=== PATIENT | male | born 1990 | race Caucasian/White ===

== ENCOUNTER 2021-02-14 10:15 | Inpatient (IN) | payer OTHER ==
[2021-02-14 11:15] VITALS: BMI 28.1
[2021-02-14] MEDS ORDERED: guaiFENesin 200 MG/10 ML 10 ML UNIT-DOSE CUPS PO PRN (13:53)
[2021-02-14] MEDS ORDERED: P-EPHED 60MG/TRIPROLIDI 2.5MG TABLET PO PRN (13:53)
[2021-02-14] MEDS ORDERED: MAGNESIUM CITRATE 300 ML BOTTLE PO PRN (13:53)
[2021-02-14] MEDS ORDERED: MAG HYDROX/AL HYDROX/SIMETH 30 ML UNIT-DOSE CUP PO PRN (13:53)
[2021-02-14] MEDS ORDERED: ACETAMINOPHEN 325 MG TABLET (FP) PO PRN (13:53)
[2021-02-14] MEDS ORDERED: NICOTINE POLACRILEX 2 MG GUM BC PRN (13:53)
[2021-02-14] MEDS ORDERED: IBUPROFEN 400 MG TABLET (FP) PO PRN (13:53)
[2021-02-14] MEDS ORDERED: MAGNESIUM HYDROX 2400MG/30ML ORAL SUSPENSION 30 ML CUP PO PRN (13:53)
[2021-02-14] MEDS ORDERED: LOPERAMIDE HCL 2 MG CAPSULE PO PRN (13:53)
[2021-02-14] MEDS ORDERED: diphenhydrAMINE HCL 25 MG CAPSULE (FP) PO PRN (13:57)
[2021-02-14] MEDS ORDERED: ALBUTEROL SO4 HFA INHALER IH PRN (13:57)
[2021-02-14] MEDS ORDERED: PANTOPRAZOLE 40 MG TABLET PO PRN (14:09)
[2021-02-14] MEDS: PRENATAL VITAMINS W/ FOLIC ACID TABLET (FP) PO SCH (15:21)
[2021-02-14] MEDS: hydrOXYzine PAMOATE 25 MG CAPSULE (FP) PO SCH ×3 (15:21→22:17)
[2021-02-14] MEDS: NICOTINE 21 MG/24 HOURS TOPICAL PATCH TD SCH (15:21)
[2021-02-14] MEDS: LORATADINE 10 MG TABLET PO PRN (16:46)
[2021-02-14 17:14] LABS: HEMATOCRIT 42.4 % (35.4-49); HEMOGLOBIN 14.4 GM/dL (11.7-16.9); MCH 30.7 pg (25.7-33.7); MCHC 33.9 g/dl (32.0-35.9); MEAN CELL VOLUME 90.5 fl (80-96); MEAN PLT VOLUME 8.1 fl (7.5-11.1); PLATELET COUNT 276 K/MM3 (134-434); RBC 4.68 M/mm3 (4.00-5.60); RDW 12.6 % (11.9-15.9); WHITE BLOOD COUNT 4.9 K/mm3 (4.0-10.0)
[2021-02-14 17:18] LABS: ALBUMIN 3.8 g/dl (3.4-5.0)
[2021-02-14 17:19] LABS: BLOOD UREA NITROGEN 13.1 mg/dL (7-18)
[2021-02-14 17:23] LABS: BILIRUBIN,TOTAL 0.4 mg/dL (0.2-1)
[2021-02-14 17:24] LABS: TOT PROT 7.1 g/dl (6.4-8.2)
[2021-02-14] MEDS: MELATONIN 5 MG TABLETS PO SCH (22:15)
[2021-02-14] MEDS: THIAMINE HCL 100 MG TABLET (FP) PO SCH (22:16)
[2021-02-14] MEDS: BUDESONIDE/FORMETEROL FUMARATE 80/4.5 mcg INHALER IH SCH (22:21)
[2021-02-15] MEDS: hydrOXYzine PAMOATE 25 MG CAPSULE (FP) PO SCH ×5 (06:33→21:47)
[2021-02-15 06:50] VITALS: TEMP 97.3
[2021-02-15] MEDS: BUDESONIDE/FORMETEROL FUMARATE 80/4.5 mcg INHALER IH SCH ×2 (10:21→21:46)
[2021-02-15] MEDS: PRENATAL VITAMINS W/ FOLIC ACID TABLET (FP) PO SCH (10:21)
[2021-02-15] MEDS: BUPRENORPHINE/NALOXONE 2 MG/0.5 MG FILM PACKET SL SCH ×2 (10:21→21:46)
[2021-02-15] MEDS: NICOTINE 21 MG/24 HOURS TOPICAL PATCH TD SCH (10:21)
[2021-02-15] MEDS: LORATADINE 10 MG TABLET PO PRN (10:22)
[2021-02-15] MEDS: MELATONIN 5 MG TABLETS PO SCH (21:44)
[2021-02-15] MEDS: THIAMINE HCL 100 MG TABLET (FP) PO SCH (21:44)
[2021-02-15] MEDS ORDERED: PT OWN MED DRAWER 7, Y5N ONE (21:45)
[2021-02-16] MEDS: hydrOXYzine PAMOATE 25 MG CAPSULE (FP) PO SCH ×5 (06:30→21:40)
[2021-02-16] MEDS: PRENATAL VITAMINS W/ FOLIC ACID TABLET (FP) PO SCH (09:56)
[2021-02-16] MEDS: BUPRENORPHINE/NALOXONE 2 MG/0.5 MG FILM PACKET SL SCH ×2 (09:57→21:40)
[2021-02-16] MEDS: NICOTINE 21 MG/24 HOURS TOPICAL PATCH TD SCH (10:31)
[2021-02-16] MEDS: BUDESONIDE/FORMETEROL FUMARATE 80/4.5 mcg INHALER IH SCH ×2 (10:32→21:39)
[2021-02-16] MEDS: THIAMINE HCL 100 MG TABLET (FP) PO SCH (21:40)
[2021-02-16] MEDS: MELATONIN 5 MG TABLETS PO SCH (21:40)
[2021-02-17] MEDS: hydrOXYzine PAMOATE 25 MG CAPSULE (FP) PO SCH ×2 (06:03→10:31)
[2021-02-17] MEDS: LORATADINE 10 MG TABLET PO PRN (06:04)
[2021-02-17 06:55] VITALS: BP 109/72; PULSE 65
[2021-02-17] MEDS: PRENATAL VITAMINS W/ FOLIC ACID TABLET (FP) PO SCH (10:29)
[2021-02-17] MEDS: BUPRENORPHINE/NALOXONE 2 MG/0.5 MG FILM PACKET SL SCH (10:30)
[2021-02-17] MEDS: NICOTINE 21 MG/24 HOURS TOPICAL PATCH TD SCH (10:30)
[2021-02-17] MEDS: BUDESONIDE/FORMETEROL FUMARATE 80/4.5 mcg INHALER IH SCH (10:31)
== END 2021-02-17 11:20 | disposition home or self-care (01) | DRG 772 ==
LOC: YASAS 10:15 → Y5N 14:48
PROVIDERS: ADMIT Allergy & Immunology; ATTEND Allergy & Immunology
PROC: HZ42ZZZ Group Counseling for Substance Abuse Treatment, Cognitive-Behavioral (ICD-10-PCS; principal; 2021-02-14)
DX: F11.20 Opioid dependence, uncomplicated (principal); F12.20 Cannabis dependence, uncomplicated; F14.10 Cocaine abuse, uncomplicated; F17.290 Nicotine dependence, other tobacco product, uncomplicated; F41.8 Other specified anxiety disorders; F32.9 Major depressive disorder, single episode, unspecified; J45.909 Unspecified asthma, uncomplicated; K21.9 Gastro-esophageal reflux disease without esophagitis; Z51.81 Encounter for therapeutic drug level monitoring
CPT/HCPCS: 36415; 71046-TC-FY; 80053; 85027; 86780; C9803; U0003; U0005

== ENCOUNTER 2024-03-06 16:25 | Inpatient (IN) | payer OTHER ==
[2024-03-06 20:14] VITALS: BMI 30.9
[2024-03-06] MEDS ORDERED: ALBUTEROL SO4 HFA INHALER IH PRN (22:01)
[2024-03-06] MEDS ORDERED: PANTOPRAZOLE 20 MG TABLET PO PRN (22:01)
[2024-03-06] MEDS ORDERED: NALOXONE HCL 0.4 MG/ML VIAL IM PRN (22:07)
[2024-03-06] MEDS ORDERED: BENZOCAINE/MENTHOL (CHLORASEPTIC ) LOZENGE MM PRN (22:07)
[2024-03-06] MEDS ORDERED: BENZONATATE 200 MG CAPSULE PO PRN (22:07)
[2024-03-06] MEDS ORDERED: P-EPHED 60MG/TRIPROLIDI 2.5MG TABLET PO PRN (22:07)
[2024-03-06] MEDS ORDERED: ACETAMINOPHEN 325 MG TABLET (FP) PO PRN (22:07)
[2024-03-06] MEDS ORDERED: NALOXONE (NARCAN) HCL 4 MG/0.1 ML SPRAY NS PRN (22:07)
[2024-03-06] MEDS ORDERED: LOPERAMIDE HCL 2 MG CAPSULE PO PRN (22:07)
[2024-03-06] MEDS ORDERED: IBUPROFEN 400 MG TABLET (FP) PO PRN (22:07)
[2024-03-06] MEDS ORDERED: guaiFENesin 600 MG TABLET.ER (FP) PO PRN (22:07)
[2024-03-06] MEDS ORDERED: MAG HYDROX/AL HYDROX/SIMETH 30 ML UNIT-DOSE CUP PO PRN (22:07)
[2024-03-07] MEDS: MELATONIN 5 MG TABLETS PO SCH (01:58)
[2024-03-07] MEDS: hydrOXYzine PAMOATE 25 MG CAPSULE (FP) PO PRN (01:59)
[2024-03-07] MEDS ORDERED: TUBERCULIN PPD 5 TU/0.1ML SYRINGE (IN PATIENT USE ONLY) ID ONE (09:00)
[2024-03-07] MEDS: methaDONE HCL 10 MG TABLET PO SCH (09:34)
[2024-03-07] MEDS: BUDESONIDE/FORMETEROL FUMARATE 80/4.5 mcg INHALER IH SCH (09:35)
[2024-03-07] MEDS: PRENATAL VITAMINS W/ FOLIC ACID TABLET (FP) PO SCH (09:35)
[2024-03-07] MEDS: ESCITALOPRAM OXALATE 10 MG TABLET PO SCH (12:09)
[2024-03-07 12:52] LABS: HEMATOCRIT 42.4 % (35.4-49); HEMOGLOBIN 14.7 GM/dL (11.7-16.9); MCH 30.8 pg (25.7-33.7); MCHC 34.7 g/dl (32.0-35.9); MEAN CELL VOLUME 88.7 fl (80-96); MEAN PLT VOLUME 7.1 fl (7.5-11.1); PLATELET COUNT 329 10^3/uL (134-434); RBC 4.78 M/mm3 (4.00-5.60); RDW 13.2 % (11.9-15.9); WHITE BLOOD COUNT 7.1 K/mm3 (4.0-10.0)
[2024-03-07 12:53] LABS: CALCIUM 8.2 mg/dL (8.5-10.1)
[2024-03-07 12:54] LABS: ALBUMIN 2.8 g/dl (3.4-5.0)
[2024-03-07 12:57] LABS: CREATININE 0.7 mg/dL (0.55-1.3)
[2024-03-07 12:58] LABS: TOT PROT 6.1 g/dl (6.4-8.2)
[2024-03-07 12:59] LABS: BILIRUBIN,TOTAL 0.2 mg/dL (0.2-1); BLOOD UREA NITROGEN 21.1 mg/dL (7-18)
[2024-03-07] MEDS: THIAMINE 100 MG TABLET PO SCH (21:34)
[2024-03-07] MEDS: LORazepam 1 MG TABLET PO PRN (21:56)
[2024-03-08 11:20] LABS: PH,URINE 5.5 (5.0-8.0); URINE APPEARANCE CLEAR; URINE BILIRUBIN NEGATIVE (NEGATIVE); URINE COLOR YELLOW; URINE GLUCOSE (UA) NEGATIVE (NEGATIVE); URINE KETONE NEGATIVE (NEGATIVE); URINE LEUK ESTERASE NEGATIVE (NEGATIVE); URINE NITRITE NEGATIVE (NEGATIVE); URINE PROTEIN NEGATIVE (NEGATIVE); URINE UROBILINOGEN 0.2 mg/dL (0.2-1.0)
[2024-03-09] MEDS: DEXTROAMPHETAMINE/AMPHETAMINE 10 MG CAP.ER.24H PO PRN (09:35)
[2024-03-10] MEDS: DEXTROAMPHETAMINE/AMPHETAMINE 10 MG CAP.ER.24H PO PRN (11:43)
[2024-03-12] MEDS ORDERED: LORazepam 0.5 MG TABLET ONE (22:25)
[2024-03-12] MEDS: LORazepam 1 MG TABLET PO PRN (22:29)
[2024-03-14] MEDS: DEXTROAMPHETAMINE/AMPHETAMINE 10 MG CAP.ER.24H PO PRN (10:06)
[2024-03-16] MEDS ORDERED: methaDONE HCL 10 MG TABLET PO SCH (06:00)
[2024-03-16] MEDS: DEXTROAMPHETAMINE/AMPHETAMINE 10 MG CAP.ER.24H PO SCH (10:08)
[2024-03-16] MEDS: NICOTINE POLACRILEX 2 MG GUM BUC PRN (18:46)
[2024-03-16] MEDS: LORazepam 1 MG TABLET PO PRN (21:49)
[2024-03-18] MEDS: LORazepam 1 MG TABLET PO PRN (22:15)
[2024-03-19] MEDS: MELATONIN 5 MG TABLETS PO SCH (21:49)
[2024-03-20] MEDS: DEXTROAMPHETAMINE/AMPHETAMINE 20 MG CAP.ER.24H PO SCH (09:50)
[2024-03-20] MEDS: MAGNESIUM HYDROX 2400MG/30ML ORAL SUSPENSION 30 ML CUP PO PRN (09:53)
[2024-03-20] MEDS: POLYETHYLENE GLYCOL (HEALTHYLAX) 3350 17 GM PACKET PO PRN (21:54)
[2024-03-21] MEDS: IBUPROFEN 600 MG TABLET (FP) PO PRN (22:38)
[2024-03-22] MEDS: NICOTINE POLACRILEX 2 MG LOZENGE BC PRN (18:12)
[2024-03-22] MEDS: LORazepam 1 MG TABLET PO PRN (21:49)
[2024-03-23] MEDS ORDERED: methaDONE HCL 10 MG TABLET PO SCH (06:00)
[2024-03-23] MEDS ORDERED: LORazepam 0.5 MG TABLET ONE (20:18)
[2024-03-25] MEDS: methaDONE HCL 10 MG TABLET PO SCH (06:36)
[2024-03-25] MEDS ORDERED: LORazepam 0.5 MG TABLET ONE (20:49)
[2024-03-26] MEDS ORDERED: LORazepam 0.5 MG TABLET ONE (20:37)
[2024-03-28] MEDS ORDERED: methaDONE HCL 10 MG TABLET PO SCH (06:00)
[2024-03-28] MEDS ORDERED: LORazepam 0.5 MG TABLET ONE (21:03)
[2024-03-29] MEDS: LORazepam 1 MG TABLET PO PRN (21:44)
[2024-03-30 07:01] VITALS: RESP 18
[2024-03-31 06:47] VITALS: TEMP 97
[2024-03-31 10:31] VITALS: BP 122/82; PULSE 109
== END 2024-03-31 09:52 | disposition home or self-care (01) | DRG 772 ==
LOC: YASAS 16:25 → Y5N 23:19
PROVIDERS: ADMIT Allergy & Immunology; ATTEND Psychiatry & Neurology Pain Medicine
PROC: HZ42ZZZ Group Counseling for Substance Abuse Treatment, Cognitive-Behavioral (ICD-10-PCS; principal; 2024-03-06)
DX: F11.20 Opioid dependence, uncomplicated (principal); F13.20 Sedative, hypnotic or anxiolytic dependence, uncomplicated; F17.210 Nicotine dependence, cigarettes, uncomplicated; F41.9 Anxiety disorder, unspecified; F32.A Depression, unspecified; F90.9 Attention-deficit hyperactivity disorder, unspecified type; J45.909 Unspecified asthma, uncomplicated; K21.9 Gastro-esophageal reflux disease without esophagitis
CPT/HCPCS: 36415; 71046-TC-FY; 80053; 80305; 81003; 85027; 86780; 93005; 93010